=== PATIENT | male | born 1950 | race Caucasian/White ===

== ENCOUNTER 2022-04-17 02:47 | Emergency (ER) | payer MEDICARE ==
[2022-04-17 03:09] LABS: #Basophils 0.1 thou/uL (0.0-0.2); #Eosinphils 0.1 thou/uL (0.0-0.7); #Monocytes 0.6 thou/uL (0.11-0.59); #Neutrophils 6.2 thou/uL (1.40-6.50); %Basophils 1.4 % (0.0-1.0); %Eosinophils 1.3 % (0.0-10.0); %Lymphocytes 22.5 % (21.0-51.0); %Monocytes 6.4 % (0.0-10.0); %Neutrophils 68.4 % (42.0-75.0); Hemoglobin 14.6 g/dL (14.0-18.0); Mean Corpuscular HGB CONC 34.8 g/dL (32.0-36.0); Mean Corpuscular Hemoglobin 31.4 pg (27.0-31.0); Mean Corpuscular Volume 90.3 fL (78.0-98.0); Mean Platelet Volume 10.3 fL (7.4-10.4); Platelet Count 154 thou/uL (130-400); RBC Distribution Width 11.4 % (11.5-14.5); Red Blood Cell (RBC) Count 4.67 mill/uL (4.70-6.10)
[2022-04-17] MEDS ORDERED: Aspirin Chewable 81 MG TAB ONE (03:17)
[2022-04-17 03:28] LABS: ALT (SGPT) 24 U/L (8-55); AST (SGOT) 28 U/L (5-34); Albumin 4.2 g/dL (3.4-4.8); Alkaline Phosphatase 63 U/L (40-110); Anion Gap 17 mmol/L (10-20); BUN (Urea Nitrogen) 20 mg/dL (8.4-25.7); Bilirubin, Total 0.6 mg/dL (0.2-1.2); CK (CPK) 173 U/L (30-200); Calc. Creatinine Clearance 0 mL/min (70-130); Calcium 9.1 mg/dL (7.8-10.44); Carbon Dioxide 19 mmol/L (23-31); Chloride 106 mmol/L (98-107); Estimated GFR 79; Globulin 2.3 g/dL (2.4-3.5); Glucose 126 mg/dL (83-110); Potassium 3.7 mmol/L (3.5-5.1); Protein, Total 6.5 g/dL (5.8-8.1); Sodium 138 mmol/L (136-145)
[2022-04-17] MEDS ORDERED: Nitroglycerin 2% Ointment 1 INCH/1 GM Packet ONE (03:43)
[2022-04-17 04:02] LABS: Prothrombin Time 12.8 sec (12.0-14.7)
[2022-04-17 04:03] LABS: PTT 35.4 sec (22.9-36.1)
[2022-04-17 04:05] LABS: D-Dimer Test 0.32 *mcg/mL (0.27-0.43)
[2022-04-17] MEDS ORDERED: Heparin 25,000 units/D5W 500 ML ONE (04:12)
[2022-04-17] MEDS ORDERED: Heparin 10,000 UNITS/ 10 ML VIAL ONE (04:13)
[2022-04-17] MEDS ORDERED: Ondansetron PF 4 MG/2 ML Vial ONE (04:13)
[2022-04-17] MEDS ORDERED: Enoxaparin Sodium 100 MG/ML SYRINGE ONE (05:38)
[2022-04-17 06:57] LABS: Troponin I 3.956 ng/mL (< 0.028)
== END 2022-04-17 06:29 | disposition short-term general hospital (02) ==
LOC: MADERS 02:47
DX: I21.4 Non-ST elevation (NSTEMI) myocardial infarction (principal); I10 Essential (primary) hypertension; Z79.899 Other long term (current) drug therapy
CPT/HCPCS: 71045; 80053; 82550; 82553; 83735; 83880; 84484; 85025; 85379; 85610; 85730; 93005; 94760; 96372; 96374; 96375; J1642; J1644; J1650; J2405